=== PATIENT | male | born 1995 | race Caucasian/White ===

== ENCOUNTER 2022-11-11 12:46 | Emergency (ER) | payer OTHER ==
[2022-11-11 13:13] VITALS: BP 164/86; PULSE 112; RESP 16; TEMP 97.4; BMI 33.9
[2022-11-11] MEDS ORDERED: KETOROLAC TROMETHAMINE 30 MG/1 ML VIAL IM ONE (15:44)
[2022-11-11] MEDS ORDERED: KETOROLAC TROMETHAMINE 60 MG/2 ML VIAL ONE (15:47)
== END 2022-11-11 16:22 | disposition home or self-care (01) ==
LOC: JERFT 12:46
PROC: 3E0233Z Introduction of Anti-inflammatory into Muscle, Percutaneous Approach (ICD-10-PCS; principal; 2022-11-11)
DX: M25.561 Pain in right knee (principal); V49.40XA Driver injured in collision with unspecified motor vehicles in traffic accident, initial encounter; Y93.I9 Activity, other involving external motion
CPT/HCPCS: 73562-TC-RT-FY; 99284-25